=== PATIENT | male | born 2005 | race Caucasian/White ===

== ENCOUNTER 2025-05-13 03:27 | Inpatient (IN) | payer BC, MEDICAID ==
[2025-05-13] VITALS (52 sets, daily range): BP systolic 116–143; BP diastolic 83–102; PULSE 70–125; RESP 20–25; TEMP 36.696–37.4; O2SAT 93–100
[~2025-05-13] VITALS: Ht 165.1 cm; Wt 82.4 kg
[~2025-05-13 03:27] MED LIST: ACET-1735
[2025-05-13] MEDS: PROPOFOL 10MG/ML 100ML 100 ML IV SCH (03:54)
[2025-05-13] MEDS: MIDAZOLAM 100MG/100ML PMX 100 ML IV SCH (03:57)
[2025-05-13] MEDS: SODIUM CHLORIDE 0.9% 1,000 ML IV ONE (03:57)
[2025-05-13] MEDS: SODIUM BICARBONATE 8.4% 50MEQ/50ML SYR IV ONE (04:10)
[2025-05-13] MEDS: ACTIVATED CHARCOAL 50 G/240 ML TUBE NG ONE (04:11)
[2025-05-13 04:37] LABS: CREATININE 1.3 mg/dL (0.6-1.3)
[2025-05-13 04:38] LABS: TROPONIN I HIGH SENSITIVITY < 4 ng/L (3.0-53); UREA NITROGEN BLOOD 14 mg/dL (9-23)
[2025-05-13 04:39] LABS: ASPARTATE AMINOTRANSFERASE 30 IU/L (<34); BASOPHILS % 0.7 % (0.0-2.0); EOSINOPHILS % 2.1 % (0.0-5.0); HEMATOCRIT. 59.5 % (42.0-52.0); HEMOGLOBIN. 18.1 g/dL (14.0-18.0); LYMPHOCYTES % 45.4 % (20.0-50.0); MONOCYTES % 6.4 % (2.0-8.0); NEUTROPHILS % 45.4 % (40.0-76.0); RED BLOOD CELL COUNT 5.96 mill/uL (4.7-6.1); RED CELL DISTRIBUTION WIDTH 14.1 % (11.6-14.6)
[2025-05-13 04:40] LABS: BILIRUBIN DIRECT 0.1 mg/dL (<=3.0); BILIRUBIN TOTAL 0.6 mg/dL (0.1-1.0); PROTEIN TOTAL 9.4 g/dL (6.0-8.3)
[2025-05-13 04:42] LABS: PHOSPHORUS 5.3 mg/dL (2.5-4.9)
[2025-05-13 04:53] LABS: INR 1.1
[2025-05-13] MEDS: MAGNESIUM 2 G PREMIX 50 ML IV ONE (05:06)
[2025-05-13] MEDS: POTASSIUM CHLORIDE 20MEQ/PACKET NG NR (05:07)
[2025-05-13 05:11] LABS: BG BASE EXCESS -6.7 mmol/L (-2.0-3.0); BG CARBOXYHEMOGLOBIN 0.3 % (0.5-1.5); BG DEOXYHEMOGLOBIN 0.1 % (0.0-5.0); BG FRACTION INSPIRED OXYGEN 100; BG HCO3 ACT 21.3 mmol/L (21.0-28.0); BG METHEMOGLOBIN 0.5 % (0.5-1.5); BG OXYGEN SATURATION 99.9 % (94.0-98.0); BG OXYHEMOGLOBIN 99.1 % (94.0-98.0); BG PCO2 51.9 mmHg (35.0-48.0); BG PEEP (cmH2O) 5.0 cmH2O; BG PH 7.231 (7.350-7.450); BG PO2 568.3 mmHg (83.0-108.0); BG SAMPLE SITE RIGHT RADIAL; BG TIDAL VOLUME(mL) 400.0 mL; BG TOTAL HEMOGLOBIN 16.1 g/dL (13.5-17.5); BG VENT MODE VENT - AC; BG VENT RATE 18.0 set
[2025-05-13] MEDS: AMPICILLIN SOD/SULBACTAM NA 3 G in SODIUM CHLORIDE 0.9% 100 ML IV SCH (05:17)
[2025-05-13] MEDS: SODIUM CHLORIDE 0.9% (SEPSIS BOLUS) IV ONE (05:19)
[2025-05-13 05:48] LABS: MEAN PLATELET VOLUME 11.0 fl (7.4-10.4); PLATELET 287 x1000/uL (130-400)
[2025-05-13] MEDS ORDERED: LEVETIRACETAM 1,000MG in NACL 100ML PREMIX IV STA (06:23)
[2025-05-13] MEDS: MIDAZOLAM HCL 2 MG/2 ML VIAL IV NR (06:29)
[2025-05-13 06:30] LABS: CLARITY URINE CLEAR (CLEAR); COLOR URINE YELLOW (YELLOW); GLUCOSE URINE NEGATIVE (NEGATIVE); KETONES URINE NEGATIVE (NEGATIVE); LEUKOCYTE ESTERASE URINE NEGATIVE (NEGATIVE); NITRITE URINE NEGATIVE (NEGATIVE); OCCULT BLOOD URINE 1+ (NEGATIVE); PH URINE 5.0 (4.5-8.0); PROTEIN URINE 1+ (NEGATIVE); SPECIFIC GRAVITY URINE 1.010 (1.005-1.030); UROBILINOGEN URINE 0.2 E.U./dL (0.2-1.0)
[2025-05-13] MEDS ORDERED: LEVETIRACETAM 1000MG PREMIX 100 ML IV NR (06:30)
[2025-05-13] MEDS ORDERED: LORAZEPAM 2MG/ML UD SYRINGE IV PRN ×2 (06:30→07:45)
[2025-05-13 06:59] LABS: *AMPHETAMINES SCREEN URINE NEGATIVE (NEGATIVE); *BARBITURATES SCREEN URINE NEGATIVE (NEGATIVE); *BENZODIAZEPINES SCREEN URINE PRESUMPTIVE POSITIVE (NEGATIVE); *COCAINE SCREEN URINE NEGATIVE (NEGATIVE); CANNABINOID URINE SCREEN PRESUMPTIVE POSITIVE (NEGATIVE); ECSTASY MDMA SCREEN URINE NEGATIVE (NEGATIVE); METHADONE URINE SCREEN NEGATIVE (NEGATIVE); OPIATES URINE SCREEN NEGATIVE (NEGATIVE); PHENCYCLIDINE URINE SCREEN NEGATIVE (NEGATIVE)
[2025-05-13 07:03] LABS: SQUAMOUS EPITHELIAL CELL URINE FEW /lpf (RARE/1+)
[2025-05-13 07:04] LABS: RBC URINE 0-2 /hpf (0-2); WBC URINE 0-2 /hpf (0-2)
[2025-05-13 07:05] LABS: BACTERIA URINE NONE SEEN
[2025-05-13] MEDS ORDERED: DEXTROSE 50% WATER 50ML SYRINGE IV PRN (07:30)
[2025-05-13] MEDS ORDERED: HYDRALAZINE 20MG/ML VIAL IV PRN (07:30)
[2025-05-13] MEDS: BLOOD SUGAR DIAGNOSTIC STRIP TEST SCH (07:30)
[2025-05-13] MEDS: LEVETIRACETAM 1000MG PREMIX 100 ML IV SCH (07:42)
[2025-05-13] MEDS ORDERED: ACETAMINOPHEN 325MG TABLET PO PRN (07:45)
[2025-05-13] MEDS ORDERED: IPRATROPIUM/ALBUTEROL 0.5-3(2.5)MG/3ML NEB HHN PRN (07:45)
[2025-05-13] MEDS ORDERED: LACTULOSE 20G/30ML UDC PO SCH (08:00)
[2025-05-13] MEDS ORDERED: LEVETIRACETAM 1000MG PREMIX 100 ML IV SCH (09:00)
[2025-05-13] MEDS: LACTULOSE 20G/30ML UDC PO SCH (09:00)
[2025-05-13] MEDS: FOLIC ACID 1 MG, THIAMINE HCL 100 MG, MVI, ADULT NO.1 10 ML in DEXTROSE 5% WATER 1,000 ML IV ONE ×2 (10:00→17:09)
[2025-05-13 11:09] LABS: BG BASE EXCESS -4.7 mmol/L (-2.0-3.0); BG CARBOXYHEMOGLOBIN 0.0 % (0.5-1.5); BG DEOXYHEMOGLOBIN 0.9 % (0.0-5.0); BG FRACTION INSPIRED OXYGEN 40; BG HCO3 ACT 19.5 mmol/L (21.0-28.0); BG METHEMOGLOBIN 0.3 % (0.5-1.5); BG OXYGEN SATURATION 99.1 % (94.0-98.0); BG OXYHEMOGLOBIN 98.8 % (94.0-98.0); BG PCO2 34.0 mmHg (35.0-48.0); BG PEEP (cmH2O) 8.0 cmH2O; BG PH 7.376 (7.350-7.450); BG PO2 214.2 mmHg (83.0-108.0); BG SAMPLE SITE RIGHT RADIAL; BG TIDAL VOLUME(mL) 450.0 mL; BG TOTAL HEMOGLOBIN 16.0 g/dL (13.5-17.5); BG VENT MODE VENT - AC; BG VENT RATE 20.0 set
[2025-05-13 11:46] LABS: LDL CHOLESTEROL 67 mg/dL (5-100); TRIGLYCERIDE 114 mg/dL (0-150); UREA NITROGEN BLOOD 13 mg/dL (9-23)
[2025-05-13 11:47] LABS: ASPARTATE AMINOTRANSFERASE 34 IU/L (<34)
[2025-05-13 11:48] LABS: BILIRUBIN TOTAL 0.9 mg/dL (0.1-1.0); PHOSPHORUS 1.2 mg/dL (2.5-4.9); PROTEIN TOTAL 6.4 g/dL (6.0-8.3)
[2025-05-13 11:50] LABS: FOLIC ACID (FOLATE) SERUM 12.81 ng/mL (>5.38); VITAMIN B12 SERUM 308 pg/mL (211-911)
[2025-05-13 12:01] LABS: CREATININE 1.7 mg/dL (0.6-1.3)
[2025-05-13 13:06] LABS: CREATININE 1.7 mg/dL (0.6-1.3); UREA NITROGEN BLOOD 17.0 mg/dL (9-23)
[2025-05-13] MEDS: POTASSIUM PHOSPHATE 30 MMOL in SODIUM CHLORIDE 0.9% 490 ML IV SCH (15:04)
[2025-05-13] MEDS ORDERED: FENTANYL 2500MCG/250ML PMX 250 ML IV PRN (18:00)
[2025-05-13] MEDS: MIDAZOLAM 100MG/100ML PMX 100 ML IV PRN (19:01)
[2025-05-13 22:24] LABS: PHOSPHORUS 4.4 mg/dL (2.5-4.9)
[2025-05-13 22:42] LABS: TROPONIN I HIGH SENSITIVITY 814 ng/L (3.0-53)
[2025-05-13 22:45] LABS: CREATINE KINASE MB FRACTION 3.8 ng/mL (0.5-3.6)
[2025-05-14] VITALS (76 sets, daily range): BP systolic 115–151; BP diastolic 73–110; PULSE 51–88; RESP 13–28; TEMP 36.6–37.2; O2SAT 96–100
[2025-05-14 06:26] LABS: PHOSPHORUS 3.9 mg/dL (2.5-4.9)
[2025-05-14 06:45] LABS: BASOPHILS % 0.1 % (0.0-2.0); EOSINOPHILS % 0.1 % (0.0-5.0); HEMATOCRIT. 43.4 % (42.0-52.0); HEMOGLOBIN. 14.6 g/dL (14.0-18.0); LYMPHOCYTES % 9.1 % (20.0-50.0); MEAN PLATELET VOLUME 9.7 fl (7.4-10.4); MONOCYTES % 8.6 % (2.0-8.0); NEUTROPHILS % 82.1 % (40.0-76.0); PLATELET 198 x1000/uL (130-400); RED BLOOD CELL COUNT 4.72 mill/uL (4.7-6.1); RED CELL DISTRIBUTION WIDTH 13.4 % (11.6-14.6)
[2025-05-14] MEDS: ENOXAPARIN 80MG/0.8ML SYR SUBCUT SCH (06:58)
[2025-05-14 07:25] LABS: CREATINE KINASE MB FRACTION 9.2 ng/mL (0.5-3.6)
[2025-05-14 07:26] LABS: CREATININE 1.4 mg/dL (0.6-1.3)
[2025-05-14 07:27] LABS: UREA NITROGEN BLOOD 9 mg/dL (9-23)
[2025-05-14 07:29] LABS: T4 FREE 1.18 ng/dL (0.89-1.76)
[2025-05-14 07:38] LABS: BG BASE EXCESS -1.3 mmol/L (-2.0-3.0); BG CARBOXYHEMOGLOBIN 0.3 % (0.5-1.5); BG DEOXYHEMOGLOBIN 0.7 % (0.0-5.0); BG FRACTION INSPIRED OXYGEN 30; BG HCO3 ACT 21.1 mmol/L (21.0-28.0); BG METHEMOGLOBIN 0.1 % (0.5-1.5); BG OXYGEN SATURATION 99.3 % (94.0-98.0); BG OXYHEMOGLOBIN 98.9 % (94.0-98.0); BG PCO2 29.8 mmHg (35.0-48.0); BG PEEP (cmH2O) 5.0 cmH2O; BG PH 7.468 (7.350-7.450); BG PO2 158.2 mmHg (83.0-108.0); BG SAMPLE SITE RIGHT RADIAL; BG TIDAL VOLUME(mL) 450.0 mL; BG TOTAL HEMOGLOBIN 15.5 g/dL (13.5-17.5); BG VENT MODE VENT - AC/VC; BG VENT RATE 20.0 set
[2025-05-14] MEDS: DEXTROSE 5% WATER 1,000 ML IV SCH (08:11)
[2025-05-14] MEDS: ACETAMINOPHEN 325MG TABLET PO PRN (08:12)
[2025-05-14] MEDS: PANTOPRAZOLE SODIUM 40 MG/VIAL IV SCH (08:12)
[2025-05-14 09:13] LABS: TROPONIN I HIGH SENSITIVITY 1664 ng/L (3.0-53)
[2025-05-14 12:16] LABS: BG BASE EXCESS -0.6 mmol/L (-2.0-3.0); BG CARBOXYHEMOGLOBIN 0.3 % (0.5-1.5); BG DEOXYHEMOGLOBIN 1.3 % (0.0-5.0); BG FRACTION INSPIRED OXYGEN 30; BG HCO3 ACT 24.1 mmol/L (21.0-28.0); BG METHEMOGLOBIN 0.1 % (0.5-1.5); BG OXYGEN SATURATION 98.7 % (94.0-98.0); BG OXYHEMOGLOBIN 98.3 % (94.0-98.0); BG PCO2 40.1 mmHg (35.0-48.0); BG PEEP (cmH2O) 5.0 cmH2O; BG PH 7.397 (7.350-7.450); BG PO2 140.9 mmHg (83.0-108.0); BG SAMPLE SITE RIGHT RADIAL; BG TOTAL HEMOGLOBIN 15.0 g/dL (13.5-17.5); BG VENT MODE VENT - CPAP
[2025-05-14 12:58] LABS: TROPONIN I HIGH SENSITIVITY 1485 ng/L (3.0-53)
[2025-05-14] MEDS: ONDANSETRON HCL 4MG/2ML INJ IV PRN (17:18)
[2025-05-14 22:19] LABS: TROPONIN I HIGH SENSITIVITY 1247 ng/L (3.0-53)
[2025-05-15] VITALS: BP 125/69; PULSE 73; RESP 18; TEMP 36.8; O2SAT 98
[2025-05-15 04:29] VITALS: BP 122/75; PULSE 63; RESP 16; TEMP 36.9; O2SAT 98
[2025-05-15] MEDS: BLOOD SUGAR DIAGNOSTIC STRIP TEST SCH (05:55)
[2025-05-15 07:48] LABS: TROPONIN I HIGH SENSITIVITY 782 ng/L (3.0-53)
[2025-05-15 07:57] LABS: CREATININE 0.9 mg/dL (0.6-1.3); UREA NITROGEN BLOOD 6 mg/dL (9-23)
[2025-05-15 07:59] LABS: BASOPHILS % 0.3 % (0.0-2.0); EOSINOPHILS % 0.1 % (0.0-5.0); HEMATOCRIT. 41.2 % (42.0-52.0); HEMOGLOBIN. 14.2 g/dL (14.0-18.0); LYMPHOCYTES % 10.7 % (20.0-50.0); MEAN PLATELET VOLUME 9.5 fl (7.4-10.4); MONOCYTES % 8.0 % (2.0-8.0); NEUTROPHILS % 80.9 % (40.0-76.0); PLATELET 171 x1000/uL (130-400); RED BLOOD CELL COUNT 4.57 mill/uL (4.7-6.1); RED CELL DISTRIBUTION WIDTH 12.9 % (11.6-14.6)
[2025-05-15 08:00] VITALS: BP 122/78; PULSE 68; RESP 16; TEMP 36.7; O2SAT 96
[2025-05-15 12:00] VITALS: BP 140/86; PULSE 60; RESP 19; TEMP 37; O2SAT 98
[2025-05-15 16:00] VITALS: BP 126/78; PULSE 63; RESP 17; TEMP 37.3; O2SAT 97
[2025-05-15 20:00] VITALS: BP 122/83; PULSE 79; RESP 10; TEMP 36.9; O2SAT 98
[2025-05-15] MEDS ORDERED: DEXTROSE 50% WATER 50ML SYRINGE IV PRN (22:45)
[2025-05-16] VITALS: BP 118/67; PULSE 79; RESP 19; TEMP 37.1; O2SAT 97
[2025-05-16 04:00] VITALS: BP 123/95; PULSE 66; RESP 17; TEMP 36.7; O2SAT 97
[2025-05-16] MEDS: BLOOD SUGAR DIAGNOSTIC STRIP TEST SCH (06:50)
[2025-05-16 08:00] VITALS: BP 126/75; PULSE 59; RESP 19; TEMP 36.7; O2SAT 93
[2025-05-16 09:12] LABS: BASOPHILS % 0.3 % (0.0-2.0); EOSINOPHILS % 0.3 % (0.0-5.0); HEMATOCRIT. 41.1 % (42.0-52.0); HEMOGLOBIN. 14.4 g/dL (14.0-18.0); LYMPHOCYTES % 17.3 % (20.0-50.0); MEAN PLATELET VOLUME 9.6 fl (7.4-10.4); MONOCYTES % 8.2 % (2.0-8.0); NEUTROPHILS % 73.9 % (40.0-76.0); PLATELET 179 x1000/uL (130-400); RED BLOOD CELL COUNT 4.56 mill/uL (4.7-6.1); RED CELL DISTRIBUTION WIDTH 13.0 % (11.6-14.6)
[2025-05-16 09:28] LABS: CREATININE 0.8 mg/dL (0.6-1.3); UREA NITROGEN BLOOD 5 mg/dL (9-23)
[2025-05-16 09:30] LABS: CREATININE 0.8 mg/dL (0.6-1.3)
[2025-05-16 09:31] LABS: ASPARTATE AMINOTRANSFERASE 32 IU/L (<34)
[2025-05-16 09:32] LABS: BILIRUBIN DIRECT 0.4 mg/dL (<=3.0); BILIRUBIN TOTAL 1.3 mg/dL (0.1-1.0); PHOSPHORUS 3.5 mg/dL (2.5-4.9); PROTEIN TOTAL 6.7 g/dL (6.0-8.3)
[2025-05-16 09:33] LABS: TROPONIN I HIGH SENSITIVITY 365 ng/L (3.0-53)
[2025-05-16 11:46] VITALS: BP 124/73; PULSE 64; RESP 18; TEMP 36.8; O2SAT 96
[2025-05-16] MEDS: MAGNESIUM OXIDE 400MG TABLET PO SCH (12:30)
[2025-05-16 13:12] VITALS: BP_SYST 122; BP_SYST 124; BP_DIAS 73; BP_DIAS 78; PULSE 64; PULSE 66; RESP 15; RESP 18; TEMP 98.2; TEMP 98.5
[2025-05-16] MEDS ORDERED: LEVE750T4 MT (14:31)
[2025-05-16] MEDS: LACTULOSE 20G/30ML UDC PO SCH (14:32)
[2025-05-16 16:00] VITALS: BP 122/78; PULSE 79; RESP 18; TEMP 36.7; O2SAT 97
== END 2025-05-16 18:25 | DRG 917 ==
LOC: ER 03:49 → CVICU 05:03 → EDBEDREQTM 05:07 → EDBEDREQ 05:07 → ENRESERV 06:52 → CANRESERV 06:52 → ENRESERV 12:21 → 3WST 05-14 20:45
PROVIDERS: ADMIT Student in an Organized Health Care Education/Training Program; ATTEND Student in an Organized Health Care Education/Training Program
PROC: 5A1945Z Respiratory Ventilation, 24-96 Consecutive Hours (ICD-10-PCS; principal; 2025-05-13)
PROC: 0BH17EZ Insertion of Endotracheal Airway into Trachea, Via Natural or Artificial Opening (ICD-10-PCS; 2025-05-13)
PROC: GZ56ZZZ Individual Psychotherapy, Supportive (ICD-10-PCS; 2025-05-14)
DX: T43.222A Poisoning by selective serotonin reuptake inhibitors, intentional self-harm, initial encounter (principal); G92.8 Other toxic encephalopathy; J96.01 Acute respiratory failure with hypoxia; I21.A1 Myocardial infarction type 2; N17.0 Acute kidney failure with tubular necrosis; E87.20 Acidosis, unspecified; E72.20 Disorder of urea cycle metabolism, unspecified; F33.2 Major depressive disorder, recurrent severe without psychotic features; M62.82 Rhabdomyolysis; E87.29 Other acidosis; R56.9 Unspecified convulsions; D72.829 Elevated white blood cell count, unspecified; E83.42 Hypomagnesemia; F12.10 Cannabis abuse, uncomplicated; E16.2 Hypoglycemia, unspecified; E86.0 Dehydration; E87.6 Hypokalemia; K72.90 Hepatic failure, unspecified without coma; Z79.899 Other long term (current) drug therapy; Z91.51 Personal history of suicidal behavior; Y92.89 Other specified places as the place of occurrence of the external cause
CPT/HCPCS: 31500; 36415; 36600; 70551; 71045; 80048; 80051; 80053; 80061; 80076; 80305; 80307; 80320; 80329; 81003; 82140; 82375; 82550; 82553; 82607; 82746; 82805; 82962; 83036; 83540; 83550; 83605; 83735; 83880; 83930; 84100; 84439; 84443; 84484; 85025; 86850; 86900; 87070; 93005; 93306; 94002; 94003; 94070; 94664; 98960; 99291; 99292; A4606; J0295; J1650; J1953; J2250; J2405; J2470; J2704; J3411; J3475; J3490; J7030; J7040; J7050; J7070; G0480